=== PATIENT | male | born 1975 | race Caucasian/White ===

== ENCOUNTER 2020-05-28 23:14 | Inpatient (IN) | payer MEDICAID ==
[~2020-05-28] VITALS: Ht 180.3 cm; Wt 78.0 kg
[~2020-05-28 23:14] MED LIST: HYDR-3240 PO; ONDA4TAB10 PO
--- NOTE | 2020-05-28 23:23 | NUR ---
NIL X1
--- NOTE | 2020-05-29 00:36 | NUR ---
pt called to room from lobby
[2020-05-29] MEDS ORDERED: CEFTRIAXONE PMX 1GM/50ML 50 ML IVPB ONE (01:00)
[2020-05-29] MEDS ORDERED: SODIUM CHLORIDE 0.9% 1,000ML IVBOLUS ONE (01:00)
[2020-05-29] MEDS ORDERED: HYDROmorphone 1 MG/ML, 1ML INJ IVPush PRN (01:00)
[2020-05-29] MEDS ORDERED: VANCOMYCIN PER PHARMACY MC ONE (01:00)
[2020-05-29] MEDS ORDERED: VANCOMYCIN 1,500 MG in SODIUM CHLORIDE 0.9% 250 ML IV ONE (01:00)
[2020-05-29] MEDS ORDERED: ACETAMINOPHEN 325 MG TABLET PO ONE (01:00)
[2020-05-29] MEDS ORDERED: ACETAMINOPHEN 325 MG TABLET ONE (01:42)
[2020-05-29] MEDS ORDERED: KETAMINE 10 MG/ML, 20ML ONE (01:42)
[2020-05-29] MEDS ORDERED: HYDROmorphone 1 MG/ML, 1ML INJ ONE (01:42)
[2020-05-29] MEDS ORDERED: CEFTRIAXONE PMX 1GM/50ML 50 ML ONE (01:44)
[2020-05-29 01:49] LABS: BASOPHILS % (AUTO) 0 % (0-1); EOSINOPHILS % (AUTO) 1 % (1-7); LYMPHOCYTES % (AUTO) 15 % (22-44); MEAN CORPUSCULAR HEMOGLOBIN 30.7 pg (27.5-34.5); MEAN CORPUSCULAR HGB CONC 33.8 g/dL (33.2-36.2); MEAN PLATELET VOLUME 7.4 fL (7.4-10.4); MONOCYTES % (AUTO) 9 % (2-9); NEUTROPHILS % (AUTO) 75 % (42-75); PLATELET COUNT 349 x10^3/uL (130-400); RED BLOOD COUNT 5.06 x10^6/uL (4.38-5.82); RED CELL DISTRIBUTION WIDTH 13.7 % (9.4-14.8)
[2020-05-29 01:55] LABS: MD NO
[2020-05-29 01:57] LABS: ANION GAP 6 mmol/L (5-15); CALCIUM 9.1 mg/dL (8.5-10.1); CHLORIDE 103 mmol/L (98-107)
[2020-05-29] MEDS ORDERED: KETAMINE 100 MG/ML, 5ML IV ONE (02:00)
[2020-05-29] MEDS ORDERED: LORazepam 2 MG/ML, 1ML ONE (02:11)
[2020-05-29] MEDS ORDERED: SODIUM CHLORIDE 0.9% 1,000 ML IV ONE (02:30)
[2020-05-29] MEDS ORDERED: ONDANSETRON 2MG/ML, 2ML IVPush PRN (02:30)
[2020-05-29] MEDS ORDERED: MORPHINE SULFATE 4 MG/ML, 1ML IVPush PRN (02:30)
--- NOTE | 2020-05-29 02:48 | NUR ---
Pt comes in with complaints of abcess to right lower leg on the bansal. States that he injected meth into it 4 days ago and now the abcess has developed. Patient noted to have a fever in triage. Unable to obain IV acess, EJ was placed by a qualified RN. Abcess I&D, patient currently resting at this time. All meds given per SEP.
[2020-05-29] MEDS ORDERED: LORazepam 2 MG/ML, 1ML IVPush ONE (03:00)
[2020-05-29] MEDS: SODIUM CHLORIDE 0.9% 1,000 ML IV SCH ×2 (04:00→12:48)
[2020-05-29] MEDS ORDERED: POLYETHYLENE GLYCOL 17 GM PACKET PO PRN (04:00)
[2020-05-29] MEDS ORDERED: VANCOMYCIN PER PHARMACY MC PRN (04:00)
[2020-05-29] MEDS ORDERED: IBUPROFEN 600 MG TABLET PO PRN (04:00)
[2020-05-29] MEDS ORDERED: BISACODYL 10 MG SUPP PR PRN (04:00)
[2020-05-29] MEDS ORDERED: morphine SULFATE 10 MG/ML, 1ML IVPush PRN (04:00)
[2020-05-29] MEDS ORDERED: OXYcodone IR 5MG TABLET PO PRN (04:00)
[2020-05-29] MEDS ORDERED: DOCUSATE 100 MG CAPSULE PO PRN (04:00)
[2020-05-29] MEDS ORDERED: ONDANSETRON ODT 4 MG PO PRN (04:00)
[2020-05-29 04:26] VITALS: BP 102/65
[2020-05-29] MEDS ORDERED: PHARMACOKINETIC CONSULTATION MC ONE (04:30)
[2020-05-29] MEDS ORDERED: PHARMACOKINETIC MONITORING MC PRN (04:30)
[2020-05-29] MEDS: AMPICILLIN/SULBACTAM 3 GM in SODIUM CHLORIDE 0.9% 100 ML IV SCH ×4 (05:11→22:36)
[2020-05-29 07:04] LABS: HCT (SEDRATE) 40.9 % (39.2-51.8)
[2020-05-29 07:23] LABS: FREE T4 (FREE THYROXINE) 1.14 ng/dL (0.76-1.46)
[2020-05-29] MEDS: ENOXAPARIN 40 MG/0.4 ML SQ SCH (08:00)
[2020-05-29 08:13] VITALS: BP 112/76
[2020-05-29 13:46] VITALS: BP 108/66
[2020-05-29] MEDS: VANCOMYCIN 1,500 MG in SODIUM CHLORIDE 0.9% 250 ML IV SCH (14:12)
[2020-05-29] MEDS ORDERED: OMNIPAQUE 350 MG/ML, 150 ML BOTTLE ONE (17:31)
[2020-05-29 18:51] VITALS: BP 115/63
[2020-05-30 02:21] VITALS: BP 95/69
[2020-05-30] MEDS: VANCOMYCIN 1,500 MG in SODIUM CHLORIDE 0.9% 250 ML IV SCH (03:39)
[2020-05-30 05:15] LABS: BASOPHILS % (AUTO) 1 % (0-1); EOSINOPHILS % (AUTO) 4 % (1-7); LYMPHOCYTES % (AUTO) 30 % (22-44); MEAN CORPUSCULAR HGB CONC 33.8 g/dL (33.2-36.2); MEAN PLATELET VOLUME 7.2 fL (7.4-10.4); MONOCYTES % (AUTO) 11 % (2-9); NEUTROPHILS % (AUTO) 54 % (42-75); PLATELET COUNT 305 x10^3/uL (130-400); RED BLOOD COUNT 4.23 x10^6/uL (4.38-5.82); RED CELL DISTRIBUTION WIDTH 13.7 % (9.4-14.8)
[2020-05-30 05:18] LABS: ALANINE AMINOTRANSFERASE 15 U/L (12-78); ALBUMIN 2.5 g/dL (3.4-5.0); ANION GAP 4 mmol/L (5-15); CALCIUM 8.4 mg/dL (8.5-10.1); CHLORIDE 114 mmol/L (98-107); CHOLESTEROL, TOTAL 91 mg/dL (140-239); CREATININE 0.62 mg/dL (0.7-1.3)
[2020-05-30 05:21] LABS: ALKALINE PHOSPHATASE 64 U/L (45-117); BILIRUBIN,TOTAL 0.2 mg/dL (0.2-1.0); HDL CHOL % 33 % (26-37); HDL CHOLESTEROL (DIRECT) 30 mg/dL (40-60); LDL CHOLESTEROL,CALCULATED 51 mg/dL (54-169); LDL/HDL RATIO 1.7 (0.5-3.0); TOTAL PROTEIN 6.3 g/dL (6.4-8.2); TRIGLYCERIDES 49 mg/dL (50-200); VLDL CHOLESTEROL 10 mg/dL (0-25)
[2020-05-30 05:27] LABS: MD NO
[2020-05-30] MEDS: AMPICILLIN/SULBACTAM 3 GM in SODIUM CHLORIDE 0.9% 100 ML IV SCH (05:55)
[2020-05-30 06:30] VITALS: BP 111/76
[2020-05-30] MEDS: ENOXAPARIN 40 MG/0.4 ML SQ SCH (07:39)
[2020-05-30] MEDS ORDERED: HOLD MEDICATION MC PRN (11:00)
== END 2020-05-30 11:13 | disposition left against medical advice (07) | DRG 872 ==
LOC: ED 05-29 01:00 → EDIP 05-29 02:36 → 4NE 05-29 03:50
PROVIDERS: ADMIT Internal Medicine; ATTEND Internal Medicine
PROC: 0Y990ZZ Drainage of Right Lower Extremity, Open Approach (ICD-10-PCS; principal; 2020-05-29)
DX: A41.9 Sepsis, unspecified organism (principal); L03.115 Cellulitis of right lower limb; E87.1 Hypo-osmolality and hyponatremia; L02.415 Cutaneous abscess of right lower limb; F15.10 Other stimulant abuse, uncomplicated; F10.10 Alcohol abuse, uncomplicated; F17.200 Nicotine dependence, unspecified, uncomplicated
CPT/HCPCS: 36415; 80048; 80053; 80061; 82040; 83036; 83605; 83735; 84145; 84439; 84443; 85025; 85651; 86140; 87040; 87070; 87205; G0378; J0295; J0696; J1170; J1650; J3370; Q9967; J2060; J7030; J7050

== ENCOUNTER 2020-05-31 13:54 | Inpatient (IN) | payer MEDICAID ==
[~2020-05-31] VITALS: Ht 180.3 cm; Wt 76.8 kg
[~2020-05-31 13:54] MED LIST changes: +VANCOMYCIN PER PHARMACY MC PRN
[2020-05-31 14:45] LABS: BASOPHILS % (AUTO) 1 % (0-1); CHLORIDE 108 mmol/L (98-107); EOSINOPHILS % (AUTO) 3 % (1-7); LYMPHOCYTES % (AUTO) 30 % (22-44); MEAN CORPUSCULAR HEMOGLOBIN 30.5 pg (27.5-34.5); MEAN CORPUSCULAR HGB CONC 33.8 g/dL (33.2-36.2); MEAN PLATELET VOLUME 7.2 fL (7.4-10.4); MONOCYTES % (AUTO) 7 % (2-9); NEUTROPHILS % (AUTO) 58 % (42-75); PLATELET COUNT 414 x10^3/uL (130-400); RED BLOOD COUNT 4.82 x10^6/uL (4.38-5.82); RED CELL DISTRIBUTION WIDTH 13.7 % (9.4-14.8)
[2020-05-31 14:50] LABS: MD NO
[2020-05-31 14:52] LABS: ALANINE AMINOTRANSFERASE 24 U/L (12-78); ALBUMIN 0.7 g/dL (3.4-5.0); ALKALINE PHOSPHATASE 80 U/L (45-117); ANION GAP 3 mmol/L (5-15); BILIRUBIN,TOTAL 0.2 mg/dL (0.2-1.0); CALCIUM 8.9 mg/dL (8.5-10.1); CREATININE 0.63 mg/dL (0.7-1.3); TOTAL PROTEIN 7.6 g/dL (6.4-8.2)
[2020-05-31] MEDS ORDERED: SODIUM CHLORIDE FLUSH 10ML SYR IVF ONE (15:00)
[2020-05-31] MEDS ORDERED: SODIUM CHLORIDE 0.9% 1,000ML IVBOLUS ONE (16:00)
[2020-05-31] MEDS ORDERED: CEFTRIAXONE PMX 1GM/50ML 50 ML IV ONE (16:00)
[2020-05-31] MEDS ORDERED: CEFTRIAXONE PMX 1GM/50ML 50 ML ONE (16:22)
[2020-05-31] MEDS ORDERED: MORPHINE SULFATE 4 MG/ML, 1ML ONE (16:23)
[2020-05-31] MEDS ORDERED: DOCUSATE 100 MG CAPSULE PO PRN (16:30)
[2020-05-31] MEDS ORDERED: HYDROcodone/APAP 5/325 TABLET PO PRN (16:30)
[2020-05-31] MEDS ORDERED: CEFTRIAXONE PMX 2GM/50ML 50 ML IVPB SCH (16:30)
[2020-05-31] MEDS ORDERED: morphine SULFATE 10 MG/ML, 1ML IVPush ONE (16:30)
[2020-05-31] MEDS ORDERED: ACETAMINOPHEN 325 MG TABLET PO PRN ×2 (16:30→18:30)
--- NOTE | 2020-05-31 16:30 | NUR ---
MED REC DONE
--- NOTE | 2020-05-31 16:30 | NUR ---
PIV PLACED PER US, ADMIN PAIN MEDS. NO DISTRESS
[2020-05-31] MEDS ORDERED: CEFTRIAXONE PMX 2GM/50ML 50 ML ONE (16:41)
--- NOTE | 2020-05-31 17:57 | NUR ---
PT IN BED NO DISTRESS, NO CHANGE
[2020-05-31] MEDS ORDERED: FENTANYL PF 100 MCG/2ML ONE ×3 (18:15→19:17)
[2020-05-31] MEDS ORDERED: PROPOFOL 10 MG/ML, 20ML ONE (18:28)
[2020-05-31] MEDS ORDERED: LIDOCAINE-MPF 2% ,5ML ONE (18:28)
[2020-05-31] MEDS ORDERED: EPHEDRINE 50 MG/ML, 1ML IVPush PRN (18:30)
[2020-05-31] MEDS ORDERED: HYDROmorphone 1 MG/ML, 1ML INJ IVPush PRN (18:30)
[2020-05-31] MEDS ORDERED: SUCCINYLCHOLINE 20 MG/ML, 10ML ONE (18:30)
[2020-05-31] MEDS ORDERED: LABETALOL 5MG/ML, 20ML IV PRN (18:30)
[2020-05-31] MEDS ORDERED: MEPERIDINE/PF 25MG/0.5ML IVPush PRN (18:30)
[2020-05-31] MEDS ORDERED: OXYcodone 5 MG/5 ML ORAL.SOL UDC PO PRN (18:30)
[2020-05-31] MEDS ORDERED: PROMETHAZINE 25 MG/ML, 1ML IVPush PRN (18:30)
[2020-05-31] MEDS ORDERED: FENTANYL PF 100 MCG/2ML IV PRN (18:30)
[2020-05-31] MEDS ORDERED: ONDANSETRON 2MG/ML, 2ML IVPush PRN (18:30)
[2020-05-31] MEDS ORDERED: hydrALAzine 20 MG/ML, 1ML IV PRN (18:30)
[2020-05-31] MEDS ORDERED: KETOROLAC 30 MG/1 ML ONE (18:42)
[2020-05-31] MEDS ORDERED: ONDANSETRON 2MG/ML, 2ML ONE (18:42)
[2020-05-31] MEDS ORDERED: DEXAMETHASONE 4 MG/ML, 1ML ONE ×2 (18:42)
[2020-05-31] MEDS ORDERED: FENTANYL PF 250 MCG/5ML ONE (18:47)
[2020-05-31] MEDS ORDERED: HYDROmorphone 2 MG/ML, 1ML ONE (19:17)
[2020-05-31] MEDS ORDERED: OXYcodone 5 MG/5 ML ORAL.SOL UDC ONE (19:18)
[2020-05-31] MEDS ORDERED: ACETAMINOPHEN 650 MG/20.3 ML UDC ONE (19:19)
[2020-05-31] MEDS ORDERED: CEFAZOLIN 2,000 MG in SODIUM CHLORIDE 0.9% 50 ML IV SCH (21:30)
[2020-05-31] MEDS: SODIUM CHLORIDE 0.9% 1,000 ML IV SCH (21:33)
[2020-05-31] MEDS: CEFAZOLIN PMX 2GM/50ML 50 ML IVPB SCH (21:48)
[2020-05-31] MEDS ORDERED: PHARMACOKINETIC MONITORING MC PRN (22:00)
[2020-05-31] MEDS ORDERED: VANCOMYCIN 1,800 MG in SODIUM CHLORIDE 0.9% 250 ML IV ONE (22:00)
[2020-06-01 00:02] VITALS: BP 107/64
[2020-06-01 04:08] VITALS: BP 109/66
[2020-06-01 04:49] LABS: BASOPHILS % (AUTO) 1 % (0-1); EOSINOPHILS % (AUTO) 0 % (1-7); LYMPHOCYTES % (AUTO) 11 % (22-44); MEAN CORPUSCULAR HEMOGLOBIN 30.6 pg (27.5-34.5); MEAN CORPUSCULAR HGB CONC 33.5 g/dL (33.2-36.2); MEAN PLATELET VOLUME 7.2 fL (7.4-10.4); MONOCYTES % (AUTO) 3 % (2-9); NEUTROPHILS % (AUTO) 86 % (42-75); PLATELET COUNT 393 x10^3/uL (130-400); RED CELL DISTRIBUTION WIDTH 13.4 % (9.4-14.8)
[2020-06-01 04:57] LABS: MD NO
[2020-06-01 05:04] LABS: ALANINE AMINOTRANSFERASE 19 U/L (12-78); ALBUMIN 2.7 g/dL (3.4-5.0); ANION GAP 4 mmol/L (5-15); CALCIUM 8.6 mg/dL (8.5-10.1); CHLORIDE 110 mmol/L (98-107)
[2020-06-01 05:07] LABS: ALKALINE PHOSPHATASE 66 U/L (45-117); BILIRUBIN,TOTAL 0.2 mg/dL (0.2-1.0); CREATININE 0.57 mg/dL (0.7-1.3); TOTAL PROTEIN 6.6 g/dL (6.4-8.2)
[2020-06-01] MEDS: CEFAZOLIN PMX 2GM/50ML 50 ML IVPB SCH ×3 (06:24→21:16)
[2020-06-01 09:44] VITALS: BP 102/58
[2020-06-01] MEDS: SODIUM CHLORIDE 0.9% 1,000 ML IV SCH ×3 (09:47→20:34)
[2020-06-01] MEDS: VANCOMYCIN 1,500 MG in SODIUM CHLORIDE 0.9% 250 ML IV SCH ×2 (09:54→22:11)
[2020-06-01 12:54] VITALS: BP 103/58
[2020-06-01 18:47] VITALS: BP 105/53
[2020-06-02 01:13] VITALS: BP 109/67
[2020-06-02] MEDS: CEFAZOLIN PMX 2GM/50ML 50 ML IVPB SCH ×2 (05:16→14:15)
[2020-06-02 08:12] VITALS: BP 115/69
[2020-06-02] MEDS: SODIUM CHLORIDE 0.9% 1,000 ML IV SCH (10:48)
[2020-06-02] MEDS: VANCOMYCIN 1,500 MG in SODIUM CHLORIDE 0.9% 250 ML IV SCH (10:48)
[2020-06-02] MEDS ORDERED: AMOX1TAB64 PO (11:45)
[2020-06-02] MEDS ORDERED: SULF1TAB24 PO (11:45)
[2020-06-02 12:23] VITALS: BP 121/72
[2020-06-02] MEDS ORDERED: ENOXAPARIN 40 MG/0.4 ML SQ SCH (17:30)
[2020-06-02] MEDS ORDERED: VANCOMYCIN 1,500 MG in SODIUM CHLORIDE 0.9% 250 ML IV SCH (18:00)
== END 2020-06-02 15:30 | disposition home or self-care (01) | DRG 580 ==
LOC: ED 15:08 → EDIP 15:18 → 4NW 20:59 → DCLOUNGE 06-02 15:25
PROVIDERS: ADMIT Hospitalist; ATTEND Internal Medicine
PROC: 0KBS0ZZ Excision of Right Lower Leg Muscle, Open Approach (ICD-10-PCS; principal; 2020-05-31 18:00)
DX: L03.115 Cellulitis of right lower limb (principal); F15.20 Other stimulant dependence, uncomplicated; L02.415 Cutaneous abscess of right lower limb; F10.10 Alcohol abuse, uncomplicated; F17.200 Nicotine dependence, unspecified, uncomplicated; Z91.19 Patient's noncompliance with other medical treatment and regimen; Z20.828 Contact with and (suspected) exposure to other viral communicable diseases
CPT/HCPCS: 36415; 84145; 96365; 96375; 99285; J3490; 80053; 80202; 83605; 85025; 87040; 87070; 87075; 87205; 87635; G0378; J0690; J0696; J1100; J1885; J2405; J2704; J3010; J3370; J0330; J2270; J7030; J7050